=== PATIENT | male | born 1945 | race Caucasian/White ===

== ENCOUNTER 2019-08-25 14:27 | Inpatient (IN) | payer OTHER ==
[~2019-08-25] VITALS: Ht 185.4 cm; Wt 78.9 kg
[~2019-08-25 14:27] MED LIST: ADULT LOW DOSE81 MG PO; ALBUTEROL2.5 MG/3 M INH; BYSTOLIC 5 MG5 M1 PO; COLACE100 MG PO; FLOMAX0.4 MG PO; LASIX 20 MG TAB20 MG PO; MELATONIN5 M1 PO; OXYBUTYNIN 5 MG5 M2 PO; POTASSIUM20 PO; PRILOSEC40 MG PO; PROAIR HFA8.5 GM INH; PROSCAR 5MG TABL5 MG PO; SYMBICORT160 MCG/4. PO; VISINE15 ML PO; VITAMIN B-122500 MCG PO; VITAMIN D31000 UNI2 PO
[2019-08-25 14:36] VITALS: BP 128/77
[2019-08-25] MEDS ORDERED: MIRALAX17 GM PO (14:42)
[2019-08-25] MEDS ORDERED: RAYOS5 MG PO (14:43)
[2019-08-25] MEDS ORDERED: XARELTO15 MG PO (14:44)
[2019-08-25] MEDS ORDERED: SPIRONOLACTONE25 MG PO (14:44)
[2019-08-25] MEDS ORDERED: FLORASTOR250 MG PO (14:44)
[2019-08-25] MEDS ORDERED: LIPITOR20 MG PO (14:45)
[2019-08-25] MEDS ORDERED: BUMEX2 MG PO (14:45)
[2019-08-25] MEDS ORDERED: XANAX 0.25 MG0.25 MG PO (14:47)
[2019-08-25] MEDS ORDERED: DIFLUCAN100 MG PO (14:48)
[2019-08-25] MEDS ORDERED: NORCO 5-325 TA1 EAC1 PO (15:51)
[2019-08-25 16:33] LABS: ABSOLUTE LYMPHOCYTES 0.4 thou/uL (0.8-5.3); ABSOLUTE MONOCYTES 0.5 thou/uL (0.0-1.2); BASOPHILS 0.2 %; EOSINOPHILS 0.5 %; HEMATOCRIT 34.2 % (42.0-52.0); HEMOGLOBIN 11.5 gm/dL (14.0-18.0); MCH 32.1 pg (26.0-34.0); MCHC 33.6 g/dL (28.0-37.0); MCV 95.6 fL (80.0-100.0); MONOCYTES 10.5 %; MPV 7.7 fl. (7.2-11.1); NUCLEATED RBCS 0 /100WBC; PLATELET COUNT* 187 thou/uL (150-400); POLYS 80.8 %; RBC 3.58 mil/uL (4.50-6.00); RDW-CV 14.8 % (10.5-14.5); WBC 4.9 thou/uL (4.0-11.0)
[2019-08-25 16:41] LABS: APTT 23.6 Seconds (25.0-31.3); CALCIUM 7.9 mg/dL (8.5-10.1); CREATININE 0.8 mg/dL (0.6-1.3); POTASSIUM 4.5 mmol/L (3.5-5.1); PROTIME 10.7 Seconds (9.20-11.50)
[2019-08-25 16:45] LABS: ALBUMIN 2.6 g/dL (3.4-5.0); TOTAL BILIRUBIN 1.5 mg/dL (<0.1-1.0)
[2019-08-25 17:03] LABS: URINE BLOOD NEGATIVE (Negative); URINE CLARITY CLEAR; URINE COLOR YELLOW; URINE GLUCOSE-RANDOM NEGATIVE (Negative); URINE KETONES TRACE (Negative); URINE LEUKOCYTES-REFLEX TRACE (Negative); URINE NITRITE-REFLEX NEGATIVE (Negative); URINE PROTEIN NEGATIVE (Negative); URINE SPECIFIC GRAVITY 1.025 (1.005-1.030)
[2019-08-25 17:08] LABS: ICTOTEST (BILI CONFIRMATORY) Negative (Negative); URINE BILIRUBIN 1+ (Negative)
[2019-08-25 17:14] LABS: BACTERIA-REFLEX >30 Many /HPF (None Seen); CASTS None Seen /LPF (None Seen); CRYSTALS None Seen /LPF (None Seen); SQUAMOUS 0-3 Few /LPF (0-3); URINE RBC 0-2 Rare /HPF (0-2); URINE WBC-REFLEX 6-15 Few /HPF (0-5)
[2019-08-25 19:45] VITALS: BP 119/75
[2019-08-25 21:35] VITALS: BP 116/42
--- NOTE | 2019-08-26 04:56 | NUR ---
PT ARRIVED AT 2140 FROM THE ER. A&O X 4, VSS. PT ON 3L O2 BY HI. MEDS GIVEN ORDERED. PAIN MANAGED WITH FENTANYL AND NORCO. SLING IN PLACE AND NWB FOR LUE MAINTAINED. HOURLY ROUNDINGS COMPLETED. NEWSOME IN PLACE. WILL CONTINUE TO MONITOR.
[2019-08-26 10:45] VITALS: BP 91/64
--- NOTE | 2019-08-26 11:16 | EKG ---
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1945 Requested By: Fermin Rosenberg Order Number: [id number] MD: Rudy Ellison Measurements Intervals [place] Rate: 85 P: 90 NE: 175 QRS: 44 QRSD: 127 T: 89 QT: 381 QTc: 453 Interpretive Statements Sinus rhythm Premature atrial complexes Nonspecific intraventricular conduction delay Anterior infarct, old Nonspecific T abnormalities, lateral leads No previous ECG available for comparison Electronically Signed On 08-26-2019 11:15:51 CLINICAL DATA RESEARCH by Rudy Ellison [email or web address] <ELECTRONICALLY SIGNED> By: Rudy Ellison MD, FACC 08/26/19 1115 1614 1614 Rudy Ellison MD, FAC /EPI
--- NOTE | 2019-08-26 15:00 | NUR ---
MET WITH PT. HE WAS ALERT AND ORIENTED. HE LIVES ALONE. HIS IN [place]. HE IS NORMALLY INDEPENDENT. 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 HE IS SUPPOSED TO POSSIBLY START ANOTHER CYCLE OF RADIATION IN SEPTEMBER BUT SAID IM SURE THAT WILL BE POSTPONED NOW. AT HOME HE HAS O2 FROM [employer] AND A [employer] WALKER. DISCUSSED DISCHARGE PLANS AND THAT HE WILL NEED SNF. HAS A SUPPORTIVE DAUGHTER THAT IS A TEACHER. DISCUSSED FACILITIES THAT CONTRACT WITH HIS INSURANCE. HE SAID HIS DAUGHTER WAS NAMING A FEW FACILITIES. HE CANNOT REMEMBER THE NAMES. HE WILL ASK HER TONIGHT. HE SAID REFERRAL COULD BE MADE TO [facility]. REFERRAL FAXED TO [facility] AND [facility].
[2019-08-26 15:42] VITALS: BP 111/73
[2019-08-26 20:35] VITALS: BP 90/61
--- NOTE | 2019-08-27 04:39 | NUR ---
PT ON 3L. MEDS GIVEN ORDERED. PAIN MANAGED WITH NORCO. PT TOLERATING BREATHING TREATMENT WELL. SLING, NEWSOME IN PLACE. NO OTHER CONCERNS AT THIS TIME. WILL CONTINUE TO MONITOR.
[2019-08-27] MEDS ORDERED: NEURONTIN100 MG PO (06:41)
[2019-08-27] MEDS ORDERED: HYDROCODON-ACE1 EAC7 PO (08:21)
--- NOTE | 2019-08-27 08:39 | NUR ---
FAXED REFERRALS WITH NOTATION OF DISCHARGE TODAY, 08/27/19 TO [facility] [phone]; [facility] [phone]; AND [facility] [phone]. WILL CALL TO CONFIRM THEY RECEIVED AND BED AVAILABILITY.
[2019-08-27 09:10] VITALS: BP 122/80
--- NOTE | 2019-08-27 09:23 | NUR ---
I have reviewed the documentation by TERRA CONKLIN from 08/26/19 to 08/26/19 and I concur with it. KATELYN HILLMAN
--- NOTE | 2019-08-27 11:00 | NUR ---
SPOKE WITH PT. INFORMED NO BED AVAILABILITY AT [place]. INFORMED THAT [facility] AND [facility] CAN ACCEPT MEDICALLY. HIS FIRST CHOICE IS [facility]. NOTIFIED CHARITO. SHE WILL PUT IN FOR INSURANCE AUTH.
--- NOTE | 2019-08-27 14:00 | NUR ---
[facility] NOTIFIED EMELIA THAT SHE HAS RECEIVED INSURANCE AUTH FROM PT.S INSURANCE. SHE CAN ACCEPT PT. TODAY TO A SKILLED BED. SHE WILL ARRANGE [facility] FOR [phone]. EMELIA FAXED DISCHARGE SUMMARY AND ORDER FOR JEROD TO BE DISCHARGED PRIOR TO TRANSFER TO [facility]. 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 HE WILL NOTIFIY HIS SON,LIONEL. CHART COPIED TO GO WITH PT. NURSING TO CALL REPORT.
--- NOTE | 2019-08-27 14:31 | NUR ---
I have reviewed the documentation by TERRA CONKLIN from 08/27/19 to 08/27/19 and I concur with it. KATELYN HILLMAN
[2019-08-27 15:20] VITALS: BP 122/80
[2019-08-27 17:10] VITALS: BP 122/80
--- NOTE | 2019-08-27 17:10 | NUR ---
DISCHARGE TO [facility] W/ TRANSPORT SUPPORT AND [facility]. PATIENT ALERT AND ORIENTED THRU SHIFT, O2 3L/NC, SOB/[place] W/ EXERTION. IMMOBILIZER TO LUE. SEE MAR. BEEBE GATHERED W/ NURSING ASST, PATIENT DRESSED W/ ASST BY NURSING. IV CATH SITE DISCONTI, CATH TIP INTACT, COTTON BALL/TAPE APPLIED TO SITE. ESCORTED TO [facility] PER WC W/ NURSING, TRANSPORT STAFF PRESENT.DENIES OTHER NURSING NEEDS AT THIS TIME. HRLY ROUNDS DONE THRU SHIFT. ~TJRN
== END 2019-08-27 17:10 | DRG 543 ==
LOC: M.ERS 14:27 → M.TBA-ER 16:06 → M.ORTHSURG 16:06
PROVIDERS: Family Medicine; ADMIT Internal Medicine
DX: M80.022A Age-related osteoporosis with current pathological fracture, left humerus, initial encounter for fracture (principal); I50.22 Chronic systolic (congestive) heart failure; E44.0 Moderate protein-calorie malnutrition; J96.11 Chronic respiratory failure with hypoxia; C34.32 Malignant neoplasm of lower lobe, left bronchus or lung; Z60.2 Problems related to living alone; I25.10 Atherosclerotic heart disease of native coronary artery without angina pectoris; K21.9 Gastro-esophageal reflux disease without esophagitis; J44.9 Chronic obstructive pulmonary disease, unspecified; N40.0 Benign prostatic hyperplasia without lower urinary tract symptoms; Z79.01 Long term (current) use of anticoagulants; Z79.82 Long term (current) use of aspirin; Z79.899 Other long term (current) drug therapy; Z79.51 Long term (current) use of inhaled steroids; Z95.1 Presence of aortocoronary bypass graft; Z88.0 Allergy status to penicillin; Z72.89 Other problems related to lifestyle; Z99.81 Dependence on supplemental oxygen; Z68.23 Body mass index [BMI] 23.0-23.9, adult